=== PATIENT | male | born 1940 | race Caucasian/White ===

== ENCOUNTER 2019-01-25 16:21 | Emergency (ER) | payer OTHER ==
[~2019-01-25] VITALS: Ht 175.3 cm; Wt 102.4 kg
[2019-01-25 16:22] VITALS: BP 119/76
[2019-01-25] MEDS ORDERED: DOXYCYCLINE HYCLATE 100 MG TAB PO ONE (17:00)
[2019-01-25] MEDS ORDERED: DOXY100C37 PO (17:01)
[2019-01-25] MEDS ORDERED: OMEG1CAP16 PO (17:09)
[2019-01-25] MEDS ORDERED: OMEP-218 PO (17:09)
[2019-01-25] MEDS ORDERED: METF-839 PO (17:09)
[2019-01-25] MEDS ORDERED: MULTCAP PO (17:09)
[2019-01-25] MEDS ORDERED: DIOV320T PO (17:09)
[2019-01-25] MEDS ORDERED: ASPI81TA85 PO (17:09)
[2019-01-25] MEDS ORDERED: VITA500C24 PO (17:09)
[2019-01-25] MEDS ORDERED: GEMF600T5 PO (17:09)
[2019-01-25] MEDS ORDERED: VITA400C5 PO (17:09)
[2019-01-25] MEDS ORDERED: HYDR50TAB PO (17:09)
== END 2019-01-25 17:18 | disposition home or self-care (01) ==
LOC: M ED 16:21
DX: S21.95XA Open bite of unspecified part of thorax, initial encounter (principal); W57.XXXA Bitten or stung by nonvenomous insect and other nonvenomous arthropods, initial encounter; Y92.9 Unspecified place or not applicable; Y93.9 Activity, unspecified; Y99.9 Unspecified external cause status; Z79.82 Long term (current) use of aspirin; Z79.84 Long term (current) use of oral hypoglycemic drugs; Z79.899 Other long term (current) drug therapy; Z88.0 Allergy status to penicillin